=== PATIENT | male | born 1955 | race Caucasian/White ===

== ENCOUNTER 2016-05-10 18:37 | Emergency (ER) | payer MEDICARE ==
[~2016-05-10 18:37] MED LIST: BACTRIM DS TABL1 TA1 PO; FLEXERIL10 M1 PO; LORTAB 10/500 T1 TAB PO; PREDNISONE10 MG PO; VOLTAREN75 MG PO
== END 2016-05-10 18:40 | disposition left against medical advice (07) ==
LOC: CED 18:37
DX: Z53.21 Procedure and treatment not carried out due to patient leaving prior to being seen by health care provider (principal)